=== PATIENT | female | born 1955 | race Caucasian/White ===

== ENCOUNTER → 2020-12-18 11:04 | Outpatient (CLI) | payer OTHER, SELFPAY ==
--- NOTE | ~2020-12-18 | DEXA_ITS ---
Bone Density Report Name: Staci Castañeda Age: 65 Sex: Female Ethnicity: White Date of : 1955 Indication: osteopenia; monitoring treatment; hyperparathyroidism; inflammatory bowel disease; history of glucocorticoids; hysterectomy; rheumatoid arthritis; secondary osteoporosis; postmenopausal Referring Provider: KAYLEE ISAAC Study: Bone densitometry was performed. Exam Date: December 18, 2020 Accession number: [id number] Bone Density: Region BMD T-score Z-score Classification AP Spine (L1-L4) 0.929 -1.1 0.6 Osteopenia Femoral Neck (Left) 0.711 -1.2 0.2 Osteopenia Total Hip (Left) 0.849 -0.8 0.4 Normal Femoral Neck (Right) 0.703 -1.3 0.1 Osteopenia Total Hip (Right) 0.805 -1.1 0.0 Osteopenia Total Hip Mean 0.827 -1.0 0.2 Normal World Health Organization criteria for BMD impression classify patients as: Normal (T-score at or above -1.0), Osteopenia (T-score between -1.0 and -2.5), or Osteoporosis (T-score at or below -2.5). 10-year Fracture Risk: FRAX not reported because: Treated for osteoporosis Previous Exams: Region Exam Age BMD T-score BMD Change BMD Change Date g/cm2 vs Baseline vs Previous AP Spine(L1-L4) 12/18/2020 65 0.929 -1.1 0.059* 0.069* 08/23/2018 62 0.860 -1.7 -0.010 -0.010 12/18/2014 59 0.870 -1.6 Total Hip(Left) 12/18/2020 65 0.849 -0.8 0.034* 0.040* 08/23/2018 62 0.809 -1.1 -0.006 -0.006 12/18/2014 59 0.815 -1.0 Total Hip(Right) 12/18/2020 65 0.805 -1.1 -0.009 -0.001 08/23/2018 62 0.806 -1.1 -0.008 -0.008 12/18/2014 59 0.814 -1.1 *Denotes significance at 95% confidence level, LSC for AP Spine = 0.022 g/cm2, LSC for Total Hip = 0.027 g/cm2 Clinical Information Provided by Patient: Has taken Glucocorticoids Has rheumatoid arthritis Has secondary osteoporosis Is being treated for osteoporosis Has used the following medications: HRT (i.e. estrogen/hormone therapy), Vitamin D, Calcium Has the following medical conditions: Inflammatory bowel diseases, Hyperparathyroidism, Hysterectomy Patient maximum height was 70.7 Menopause Age: 31 Does not regularly consume dairy products Drinks caffeinated beverages Onset of menses at age 14 Number of children 3 Impression: The patient has low bone mass, based on the Right Femoral Neck T-score. The patient has risk factors, including: history
== END ==
PROVIDERS: PCP Internal Medicine Rheumatology
DX: E03.9 Hypothyroidism, unspecified (principal); M85.88 Other specified disorders of bone density and structure, other site; M85.852 Other specified disorders of bone density and structure, left thigh; M85.851 Other specified disorders of bone density and structure, right thigh
CPT/HCPCS: 77080

== ENCOUNTER → 2021-12-29 09:56 | Outpatient (CLI) | payer OTHER, SELFPAY ==
--- NOTE | ~2021-12-29 | DEXA_ITS ---
Bone Density Report Name: JAI MICHEL Age: 66 Sex: Female Ethnicity: White Date of : 1955 Indication: osteopenia; monitoring treatment; hyperparathyroidism; inflammatory bowel disease; history of glucocorticoids; hysterectomy; rheumatoid arthritis; secondary osteoporosis; Referring Provider: KAYLEE ISAAC Study: Bone densitometry was performed. Exam Date: December 29, 2021 Accession number: [id number] Bone Density: Region BMD T-score Z-score Classification AP Spine (L1-L4) 0.916 -1.2 0.5 Osteopenia Femoral Neck (Left) 0.776 -0.7 0.8 Normal Total Hip (Left) 0.874 -0.6 0.6 Normal Femoral Neck (Right) 0.735 -1.0 0.4 Normal Total Hip (Right) 0.817 -1.0 0.2 Normal Total Hip Mean 0.846 -0.8 0.4 Normal World Health Organization criteria for BMD impression classify patients as: Normal (T-score at or above -1.0), Osteopenia (T-score between -1.0 and -2.5), or Osteoporosis (T-score at or below -2.5). 10-year Fracture Risk: FRAX not reported because: Treated for osteoporosis Previous Exams: Region Exam Age BMD T-score BMD Change BMD Change Date g/cm2 vs Baseline vs Previous AP Spine(L1-L4) 12/29/2021 66 0.916 -1.2 0.045* -0.014 12/18/2020 65 0.929 -1.1 0.059* 0.069* 08/23/2018 62 0.860 -1.7 -0.010 -0.010 12/18/2014 59 0.870 -1.6 Total Hip(Left) 12/29/2021 66 0.874 -0.6 0.059* 0.025 12/18/2020 65 0.849 -0.8 0.034* 0.040* 08/23/2018 62 0.809 -1.1 -0.006 -0.006 12/18/2014 59 0.815 -1.0 Total Hip(Right) 12/29/2021 66 0.817 -1.0 0.003 0.012 12/18/2020 65 0.805 -1.1 -0.009 -0.001 08/23/2018 62 0.806 -1.1 -0.008 -0.008 12/18/2014 59 0.814 -1.1 *Denotes significance at 95% confidence level, LSC for AP Spine = 0.022 g/cm2, LSC for Total Hip = 0.027 g/cm2 Clinical Information Provided by Patient: Has taken Glucocorticoids Has rheumatoid arthritis Has secondary osteoporosis Is being treated for osteoporosis Has used the following medications: HRT (i.e. estrogen/hormone therapy), Vitamin D, MULT VIT Has the following medical conditions: Inflammatory bowel diseases, Hyperparathyroidism, Hysterectomy Patient maximum height was 71 Menopause Age: 31 Does not regularly consume dairy products Drinks caffeinated beverages Onset of menses at age 14 Number of children 3
== END ==
PROVIDERS: PCP Internal Medicine
DX: M85.88 Other specified disorders of bone density and structure, other site (principal)
CPT/HCPCS: 77080

== ENCOUNTER 2022-07-05 14:19 | Outpatient (CLI) | payer OTHER, SELFPAY ==
[2022-07-05 18:25] LABS: Basophils Percent Auto 0.6 % (0.2-1.2); Eosinophils Percent Auto 2.2 % (0-4.4); Hematocrit 41.2 % (37.0-47.0); Hemoglobin 13.8 g/dL (12.0-15.0); Lymphocytes Percent Auto 44.4 % (18.3-44.2); Mean Corpuscular HGB Conc 33.5 g/dl (32-36); Mean Corpuscular Hemoglobin 33.4 pg (26-34); Mean Corpuscular Volume 99.8 fl (80-100); Mean Platelet Volume 10.5 fl (7.4-10.4); Monocytes Absolute Auto 0.5 K/mm3 (0.1-0.6); Monocytes Percent Auto 28.9 % (2.6-8.5); Neutrophils Absolute Auto 0.4 K/mm3 (1.3-6.7); Neutrophils Percent Auto 23.9 % (45.5-73.1); Platelet Count Result 216 k/mm3 (150-375); Red Blood Count 4.13 M/mm3 (4.2-5.4); Red Cell Distribution Width 12.8 % (11.5-14.5)
[2022-07-05 19:03] LABS: Alanine Aminotransferase 41 U/L (6-35); Albumin Level 4.1 g/dL (3.5-5.1); Alkaline Phosphatase 74 U/L (38-126); Anion Gap 6 mmol/L (8-16); Aspartate Amino Transferase 53 U/L (14-36); Bilirubin,Total 0.4 mg/dL (0.2-1.3); Blood Urea Nitrogen 8 mg/dL (7-17); Calcium 8.7 mg/dL (8.4-10.2); Carbon Dioxide 28 mmol/L (22-30); Chloride 102 mmol/L (98-107); Estimated Glomerular Filt Rate > 60; Glucose 101 mg/dL (65-110); Potassium 3.9 mmol/L (3.4-5.0); Sodium 136 mmol/L (137-145)
[2022-07-05 19:05] LABS: Erythrocyte Sedimentation Rate 6 mm/hr (0-20)
[2022-07-05 19:32] LABS: White Blood Count 1.8 K/mm3 (4.5-10.0)
== END 2022-07-05 14:20 | disposition home or self-care (01) ==
LOC: ANHGOSHLAB 14:20
PROVIDERS: PCP Internal Medicine; Visit Provider Internal Medicine
DX: M06.9 Rheumatoid arthritis, unspecified (principal); Z79.899 Other long term (current) drug therapy
CPT/HCPCS: 36415; 80053; 85025; 85652

== ENCOUNTER 2022-07-07 10:18 | Outpatient (CLI) | payer OTHER, SELFPAY ==
[2022-07-07 13:08] LABS: Basophils Percent Auto 0.5 % (0.2-1.2); Eosinophils Percent Auto 0.9 % (0-4.4); Hematocrit 40.9 % (37.0-47.0); Hemoglobin 13.4 g/dL (12.0-15.0); Lymphocytes Absolute Auto 1.03 K/mm3 (0.9-3.2); Lymphocytes Percent Auto 47.9 % (18.3-44.2); Mean Corpuscular HGB Conc 32.8 g/dl (32-36); Mean Corpuscular Hemoglobin 33.2 pg (26-34); Mean Corpuscular Volume 101.2 fl (80-100); Mean Platelet Volume 10.4 fl (7.4-10.4); Monocytes Absolute Auto 0.5 K/mm3 (0.1-0.6); Monocytes Percent Auto 25.1 % (2.6-8.5); Neutrophils Absolute Auto 0.6 K/mm3 (1.3-6.7); Neutrophils Percent Auto 25.6 % (45.5-73.1); Platelet Count Result 228 k/mm3 (150-375); Red Blood Count 4.04 M/mm3 (4.2-5.4); White Blood Count 2.2 K/mm3 (4.5-10.0)
== END 2022-07-07 10:19 | disposition home or self-care (01) ==
LOC: ANHGOSHLAB 10:19
PROVIDERS: PCP Internal Medicine; Visit Provider Internal Medicine
DX: D70.2 Other drug-induced agranulocytosis (principal)
CPT/HCPCS: 36415; 85025

== ENCOUNTER 2022-07-13 09:18 | Outpatient (CLI) | payer OTHER, SELFPAY ==
[2022-07-13 14:27] LABS: Basophils Percent Auto 0.4 % (0.2-1.2); Eosinophils Absolute Auto 0.1 K/mm3 (0-0.3); Eosinophils Percent Auto 2.1 % (0-4.4); Hematocrit 44.2 % (37.0-47.0); Hemoglobin 14.7 g/dL (12.0-15.0); Lymphocytes Absolute Auto 1.44 K/mm3 (0.9-3.2); Lymphocytes Percent Auto 50.5 % (18.3-44.2); Mean Corpuscular HGB Conc 33.3 g/dl (32-36); Mean Corpuscular Hemoglobin 33.7 pg (26-34); Mean Corpuscular Volume 101.4 fl (80-100); Monocytes Absolute Auto 0.6 K/mm3 (0.1-0.6); Monocytes Percent Auto 21.1 % (2.6-8.5); Neutrophils Absolute Auto 0.7 K/mm3 (1.3-6.7); Neutrophils Percent Auto 25.9 % (45.5-73.1); Platelet Count Result 217 k/mm3 (150-375); Red Blood Count 4.36 M/mm3 (4.2-5.4); Red Cell Distribution Width 12.8 % (11.5-14.5); White Blood Count 2.9 K/mm3 (4.5-10.0)
== END 2022-07-13 09:19 | disposition home or self-care (01) ==
LOC: ANHGOSHLAB 09:19
PROVIDERS: PCP Internal Medicine; Visit Provider Internal Medicine
DX: D70.2 Other drug-induced agranulocytosis (principal)
CPT/HCPCS: 36415; 85025

== ENCOUNTER 2023-06-10 13:24 | Outpatient (CLI) | payer MEDICARE, SELFPAY ==
--- NOTE | ~2023-06-10 | XR_ITS ---
XR hip RT min 2V 06/10/2023 13:39 INDICATION: Right hip pain PROCEDURE: 2 views right hip COMPARISON: 12/29/2018 FINDINGS: Fracture, dislocation or subluxation is not identified. There is osteoarthritis of the righ t hip with marginal osteophytosis along the inferior joint space. The soft tissues appear within norm al limits. No foreign bodies are identified. IMPRESSION: 1: Osteoarthritis of the right hip most prominent along the inferior aspect of the hip joint. Reviewed, dictated and finalized at location B.
== END 2023-06-10 13:25 ==
PROVIDERS: PCP Internal Medicine; Visit Provider Internal Medicine
DX: M16.11 Unilateral primary osteoarthritis, right hip (principal)
CPT/HCPCS: 73502

== ENCOUNTER 2023-09-29 12:40 | Outpatient (CLI) | payer MEDICARE, SELFPAY ==
--- NOTE | ~2023-09-29 | US_ITS ---
US pelvic complete w TV Ordering provider: Marek Herman MD History: . N94.89 - Other specified conditions associated with femal... . Comparison: None. Technique: Transabdominal and endovaginal ultrasound of the pelvis (Doppler ultrasound interrogation techniques used as needed for this exam.) FINDINGS: UTERUS: Status post hysterectomy. CUL DE SAC: No free fluid. RIGHT OVARY: Surgically removed. Cystic structure seen in the right adnexa measuring 3.6 x 2.7 x 2.9 cm. LEFT OVARY: Surgically removed.. Cystic structure seen in the left adnexa measuring 5.1 x 3.2 x 2 cm. IMPRESSION: Cystic masses in both adnexa which may be inclusion cysts. cystadenomas is in the differential. Follo w-up advised. status post hysterectomy and removal of the radius. Reviewed, dictated and finalized at location A. IMPRESSION: Cystic masses in both adnexa which may be inclusion cysts. cystadenomas is in t he differential. Follow-up advised. status post hysterectomy and removal of the radius.
== END 2023-09-29 12:41 ==
LOC: GOSHIMG 12:41
PROVIDERS: PCP Obstetrics & Gynecology; Visit Provider Obstetrics & Gynecology
DX: N94.89 Other specified conditions associated with female genital organs and menstrual cycle (principal); N94.9 Unspecified condition associated with female genital organs and menstrual cycle
CPT/HCPCS: 76830; 76856

== ENCOUNTER 2024-06-05 14:27 | Outpatient (CLI) | payer MEDICARE, SELFPAY ==
--- NOTE | ~2024-06-05 | XR_ITS ---
CHEST RADIOGRAPH, PA AND LATERAL CLINICAL HISTORY: R05.9 - Cough, unspecified . COMPARISON: 07/13/2018 TECHNIQUE: PA and lateral views of the chest. FINDINGS The cardiomediastinal silhouette is unremarkable. The lungs are clear. Visualized osseous structures and soft tissues are unremarkable. IMPRESSION: No focal infiltrate or effusion. Reviewed, dictated and finalized at location A.
== END 2024-06-05 14:28 | disposition home or self-care (01) ==
LOC: GOSHIMG 14:28
PROVIDERS: PCP Nurse Practitioner; Visit Provider Nurse Practitioner
DX: R05.9 Cough, unspecified (principal)
CPT/HCPCS: 71046

== ENCOUNTER 2024-07-03 14:07 | Outpatient (CLI) | payer MEDICARE, SELFPAY ==
--- NOTE | ~2024-07-03 | DEXA_ITS ---
Bone Density Report Name: JAI MICHEL Age: 68 Sex: Female Ethnicity: White Date of : 1955 Indication: osteopenia; monitoring treatment; height loss; history of glucocorticoids; asthma or emphysema; hysterectomy; rheumatoid arthritis; Referring Provider: KAYLEE ISAAC Study: Bone densitometry was performed. Exam Date: July 03, 2024 Accession number: [id number] Bone Density: Region BMD T-score Z-score Classification AP Spine(L1-L4) 0.969 -0.7 1.2 Normal Femoral Neck (Left) 0.729 -1.1 0.5 Osteopenia Total Hip (Left) 0.867 -0.6 0.7 Normal Femoral Neck (Right) 0.715 -1.2 0.4 Osteopenia Total Hip (Right) 0.807 -1.1 0.2 Osteopenia Total Hip Mean 0.837 -0.9 0.5 Normal World Health Organization criteria for BMD impression classify patients as: Normal (T-score at or above -1.0), Osteopenia (T-score between -1.0 and -2.5), or Osteoporosis (T-score at or below -2.5). 10-year Fracture Risk: FRAX not reported because: Treated for osteoporosis Previous Exams: -- Region Exam Age BMD T-score BMD Change BMD Change Date g/cm2 vs Baseline vs Previous -- AP Spine (L1-L4) 07/03/2024 68 0.969 -0.7 11.3%* 5.8%* 12/29/2021 66 0.916 -1.2 5.2%* -1.5% 12/18/2020 65 0.929 -1.1 6.8%* 8.0%* 08/23/2018 62 0.860 -1.7 -1.1% -1.1% 12/18/2014 59 0.870 -1.6 Total Hip(Left) 07/03/2024 68 0.867 -0.6 6.3%* -0.9% 12/29/2021 66 0.874 -0.6 7.3%* 3.0% 12/18/2020 65 0.849 -0.8 4.2%* 5.0%* 08/23/2018 62 0.809 -1.1 -0.7% -0.7% 12/18/2014 59 0.815 -1.0 Total Hip(Right) 07/03/2024 68 0.807 -1.1 -0.9% -1.3% 12/29/2021 66 0.817 -1.0 0.4% 1.5% 12/18/2020 65 0.805 -1.1 -1.1% -0.2% 08/23/2018 62 0.806 -1.1 -0.9% -0.9% 12/18/2014 59 0.814 -1.1 -- *Denotes significance at 95% confidence level, LSC for AP Spine = 0.022 g/cm2, LSC for Total Hip = 0.027 g/cm2 Clinical Information Provided by Patient: Has taken Glucocorticoids Has rheumatoid arthritis Is being treated for osteoporosis Has used the following medications: Actonel (i.e. risedronate), HRT (i.e. estrogen/hormone therapy), Reclast (i.e. zoledronate), Vitamin D, Calcium, MTV Has the following medical conditions: Asthma or Emphysema, Hysterectomy Patient maximum height was 70.75 Menopause Age: 31 Drinks caffeinated beverages Onset of menses at age 15 Number of children 3 Impression: The patient has low bone mass, based on the Right Femoral Neck T-score. The patient has risk factors, including: history of glucocorticoid therapy. No significant bone loss was observed. Discussion: PATIENT UNDER TREATMENT WITH NO SIGNIFICANT BMD LOSS SINCE LAST EXAM. In an untreated patient, BMD typically declines with age. A lack of decline or gain is usually a sign that treatment is efficacious and fracture risk is reduced. It is important to ask patients whether they are taking their medications and to encourage continued and appropriate compliance with their osteoporosis therapies to reduce fracture risk. It is also important to review their risk factors and encourage appropriate calcium and vitamin D intakes, exercise, fall prevention and other lifestyle measures. Follow-Up: Consider a repeat BMD and Vertebral Fracture Assessment (VFA) exam in 2 years or sooner if medically necessary, to reassess this patient's status. Reported by: DEANNA on 07/04/2024 8:25:00 AM. Reviewed, dictated and finalized at location A.
== END 2024-07-03 14:08 | disposition home or self-care (01) ==
PROVIDERS: PCP Physician Assistant Medical
DX: M81.0 Age-related osteoporosis without current pathological fracture (principal); M85.852 Other specified disorders of bone density and structure, left thigh; M85.851 Other specified disorders of bone density and structure, right thigh
CPT/HCPCS: 77080